=== PATIENT | male | born 1950 | race Caucasian/White ===

== ENCOUNTER 2024-02-04 15:54 | Emergency (ER) | payer OTHER ==
[~2024-02-04] VITALS: Ht 182.9 cm; Wt 84.0 kg
[2024-02-04 15:56] VITALS: O2SAT 98
[2024-02-04 16:12] VITALS: BP 102/70; TEMP 98.1
[2024-02-04 17:16] LABS: CHLORIDE 100 mEq/L (98-107); POTASSIUM 3.6 mEq/L (3.5-5.1); SODIUM 134 mEq/L (136-145)
[2024-02-04 17:17] LABS: CALCIUM 9.2 mg/dL (8.7-10.4); CARBON DIOXIDE 24 mEq/L (21-32)
[2024-02-04 17:20] LABS: BASOPHILS % 0.3 % (0.0-2.0); EOSINOPHILS % 0.1 % (0.0-5.0); HEMOGLOBIN. 14.2 g/dL (14.0-18.0); LYMPHOCYTES % 53.7 % (20.0-50.0); MEAN CORPUSCULAR HEMOGLOBIN 32.6 pg (28.0-32.0); MEAN CORPUSCULAR HGB CONC 34.6 g/dL (31.0-37.0); MEAN CORPUSCULAR VOLUME 94.3 fL (80.0-94.0); MEAN PLATELET VOLUME 7.7 fl (7.4-10.4); MONOCYTES % 14.8 % (2.0-8.0); NEUTROPHILS % 31.1 % (40.0-76.0); PLATELET 173 x1000/uL (130-400); RED BLOOD CELL COUNT 4.35 mill/uL (4.7-6.1); RED CELL DISTRIBUTION WIDTH 12.9 % (11.6-14.6); WHITE BLOOD COUNT 4.2 x1000/uL (4.5-11.0)
[2024-02-04 17:22] LABS: CREATININE 0.9 mg/dL (0.6-1.3); GLUCOSE 104 mg/dL (70-105); UREA NITROGEN BLOOD 13 mg/dL (9-23)
[2024-02-04 17:23] LABS: ALANINE AMINOTRANSFERASE 28 IU/L (10-49)
[2024-02-04 17:24] LABS: ALBUMIN 4.2 g/dL (3.2-4.8); ASPARTATE AMINOTRANSFERASE 40 IU/L (<34); BILIRUBIN DIRECT 0.4 mg/dL (<=3.0); BILIRUBIN TOTAL 1.1 mg/dL (0.1-1.0)
[2024-02-04] MEDS ORDERED: PREDNISONE 20MG TABLET PO ONE (17:45)
[2024-02-04] MEDS: SODIUM CHLORIDE 0.9% 500 ML IV ONE (19:28)
[2024-02-04] MEDS: PREDNISONE 20MG TABLET PO NR (19:36)
[2024-02-04 20:10] VITALS: PULSE 72; RESP 16; O2SAT 96
[2024-02-04] MEDS: ALBUTEROL (0.083%) 2.5MG/3ML NEB HHN ONE (20:10)
[2024-02-04] MEDS ORDERED: ALBUTEROL (0.083%) 2.5MG/3ML NEB HHN ONE (20:45)
[2024-02-04 22:58] VITALS: PULSE 70; RESP 16; O2SAT 96
[2024-02-04] MEDS: ALBUTEROL (0.083%) 2.5MG/3ML NEB HHN NR (22:59)
[2024-02-04] MEDS ORDERED: ALBU18HF2 IH (23:21)
[2024-02-04] MEDS ORDERED: P50 MT (23:21)
== END 2024-02-04 23:42 | disposition home or self-care (01) ==
LOC: ER 15:54
DX: R19.7 Diarrhea, unspecified (principal); B34.9 Viral infection, unspecified; I10 Essential (primary) hypertension; I25.2 Old myocardial infarction; Z86.73 Personal history of transient ischemic attack (TIA), and cerebral infarction without residual deficits; Z88.0 Allergy status to penicillin; Z20.822 Contact with and (suspected) exposure to COVID-19
CPT/HCPCS: 99284; 96360; 71045; 87426; 80076; 80048; 85025; 87804 ×2; 36415; 94640; J7512; J7030

== ENCOUNTER 2025-04-01 09:43 | Emergency (ER) | payer OTHER, MEDICAID ==
[~2025-04-01] VITALS: Ht 175.3 cm; Wt 80.0 kg
[~2025-04-01 09:43] MED LIST: ALBU18HF2 IH; P50 MT
[2025-04-01 09:49] VITALS: O2SAT 99
[2025-04-01 10:06] VITALS: BP 155/97; PULSE 99; RESP 14; TEMP 36.8; O2SAT 98
[2025-04-01] MEDS ORDERED: ACET-3800 MT (11:12)
== END 2025-04-01 11:32 | disposition home or self-care (01) ==
LOC: ER 09:43
DX: M25.562 Pain in left knee (principal); M25.572 Pain in left ankle and joints of left foot; E78.00 Pure hypercholesterolemia, unspecified; I11.9 Hypertensive heart disease without heart failure; I25.2 Old myocardial infarction; Z86.73 Personal history of transient ischemic attack (TIA), and cerebral infarction without residual deficits; Z88.0 Allergy status to penicillin; Z98.890 Other specified postprocedural states
CPT/HCPCS: 73562; 99283